=== PATIENT | male | born 1975 | race Caucasian/White ===

== ENCOUNTER 2024-08-15 01:59 | Day surgery (SDC) | payer OTHER, SELFPAY ==
[2024-07-28 09:55] VITALS: BMI 24.2
[2024-08-15 07:50] VITALS: BP 120/75; PULSE 69; RESP 18; TEMP 36; O2SAT 100
[2024-08-15] MEDS: LACTATED RINGERS 1,000 ML 150 ML IV CONT (08:12)
--- NOTE | 2024-08-15 08:27 | WPDANESEPPF ---
Anes - Initial Pre Proc Eval Procedure: Operation Date: 08/15/24 09:00 Proposed Procedures p Screening Colonoscopy - Hernandez Sosa MD Date/Time: 08/15/24 08:27 Surgeon: Hernandez Sosa MD Pre Op Diagnosis: screening neoplasm of colon Patient Data Age: 48 Gender: M Height: 1.91 m Weight: 85.2 kg Last Vital Signs Temp 36.0 C L 08/15/24 07:50 Pulse 69 08/15/24 07:50 Resp 18 08/15/24 07:50 BP 120/75 08/15/24 07:50 Pulse Ox 100 08/15/24 07:50 O2 Del Method Room Air 08/15/24 07:50 Allergies Allergy/AdvReac Type Severity Reaction Status Date / Time No Known Allergies Allergy Verified 08/15/24 07:57 Home Medications Medication Instructions Recorded Confirmed Type No Home Medications 07/28/24 08/15/24 History Patient hx anesthesia problems: none Family hx anesthesia problems: none Results Review: All pre-operative results and documents have been reviewed as part of the pre-operative evaluation. [facility] Past Medical History Medical History (Updated 08/15/24 @ 08:27 by Lew Pearson MD) Open wound ankle Venous stasis Family History Family History Other Family history of malignant neoplasm Social History Social History Smoking packs per day: 0.5 Smoking cigarettes per day: 10.0 Years smoked: 30 Smoking pack-years: 15.00 Smoking status: Current every day smoker Tobacco type: cigarettes Alcohol intake: never Spiritual care concerns: No Anes - Eval Final PreProcedure Day of Procedure 08/15/24 08:27 Patient weight: normal Heart: regular rate and rhythm Lungs: clear to auscultation Airway: Mallampati scale class II Neurological: alert and oriented Last oral intake: >/= 8 hours ASA classification: III Emergent: no Anesthetic plan: proceed Anesthesia type and monitoring: general GIVS and standard monitoring Results Review: All pre-operative results and documents have been reviewed as part of the pre-operative evaluation. Informed Consent: The patient's anesthetic plan and its attendant risks and benefits were discussed with the patient/family/POA. Questions were solicited and answers provided to the satisfaction of the patient/family/POA.
--- NOTE | 2024-08-15 09:23 | PM.IMHP ---
H&P: HPI History of Present Illness Date/Time: 08/15/24 09:23 Chief Complaint: Screening colonoscopy Narrative: this is the patient's 1st colonoscopy, he is considered an average risk patient. No family history, no symptoms. Review of Systems Review of Systems: All systems reviewed & are unremarkable except as noted in HPI and below PMFSH Past Medical History Medical History (Updated 08/15/24 @ 09:24 by Hernandez Sosa MD) Open wound ankle Venous stasis Family History Family History Other Family history of malignant neoplasm Social History Social History Smoking packs per day: 0.5 Smoking cigarettes per day: 10.0 Years smoked: 30 Smoking pack-years: 15.00 Smoking status: Current every day smoker Tobacco type: cigarettes Alcohol intake: never Spiritual care concerns: No Meds Home Medications and Allergies Home Medications Medication Instructions Recorded Confirmed Type No Home Medications 07/28/24 08/15/24 History Allergies Allergy/AdvReac Type Severity Reaction Status Date / Time No Known Allergies Allergy Verified 08/15/24 07:57 Vital Signs Vital Signs - 24 hr 08/15/24 07:50 Temperature 96.8 F L Pulse Rate 69 Respiratory Rate 18 Blood Pressure 120/75 Pulse Oximetry 100 Oxygen Delivery Room Air Assessment and Plan Assessment and plan (1) Screening for malignant neoplasm of colon: Code(s): Z12.11 - Encounter for screening for malignant neoplasm of colon Status: Acute Plan Patient deemed a good candidate for colonoscopy. Will proceed.
[2024-08-15 09:52] VITALS: BP 91/63; PULSE 62; RESP 15; O2SAT 100
[2024-08-15 10:02] VITALS: BP 99/66; PULSE 51; RESP 14; O2SAT 100
[2024-08-15 10:12] VITALS: BP 107/72; PULSE 53; RESP 17; O2SAT 100
== END 2024-08-15 10:59 | disposition home or self-care (01) ==
PROVIDERS: PCP Family Medicine; Visit Provider Internal Medicine Gastroenterology
PROC: 0DJD8ZZ Inspection of Lower Intestinal Tract, Via Natural or Artificial Opening Endoscopic (ICD-10-PCS; CPT 45378; principal; 2024-08-15 09:00)
DX: Z12.11 Encounter for screening for malignant neoplasm of colon (principal); F17.210 Nicotine dependence, cigarettes, uncomplicated; Z80.9 Family history of malignant neoplasm, unspecified
CPT/HCPCS: 45378; J2003; J2704; J7120